=== PATIENT | male | born 1990 | race Caucasian/White ===

== ENCOUNTER 2017-06-07 14:34 | Emergency (ER) | payer SELFPAY ==
[2017-06-07 14:40] VITALS: TEMP 98.2
--- NOTE | 2017-06-07 14:43 | CPEKG ---
Heart Rate: 101 RR Interval: 594 P-R Interval: 144 QRSD Interval: 94 QT Interval: 348 QTC Interval: 452 P [place]: 53 QRS [place]: 39 T Wave [place]: 36 EKG Severity - OTHERWISE NORMAL ECG - EKG Impression: SINUS TACHYCARDIA Electronically Signed By: Philip Anglin 07-Jun-2017 15:28:52
[2017-06-07] MEDS ORDERED: LORazepam 2 MG/ML INJ IVP ONE (15:23)
[2017-06-07] MEDS ORDERED: NS 1,000 ML IV ONE (15:23)
[2017-06-07 15:28] LABS: % IMMATURE GRANULYOCYTES 0.2 % (0.0-1.1); ABSOLUTE IMMATURE GRANULOCYTES 0.01 10^3/uL (0.00-0.10); ADD DIFF? NO; ADD MORPH? NO; ADD SCAN? NO; ATYPICAL LYMPHOCYTE FLAG 10 (0-99); FRAGMENT RBC FLAG 0 (0-99); HEMATOCRIT 48.2 % (40.0-51.0); LEFT SHIFT FLG 0 (0-99); LIPEMIA HEMOLYSIS FLAG 90 (0-99); MEAN CELL HEMOGLOBIN 33.8 pg (27.9-34.1); MEAN CELL HEMOGLOBIN CONCENTR. 35.3 g/dL (32.4-36.7); MEAN CELL VOLUME 95.8 fL (81.5-99.8); MEAN PLATELET VOLUME 10.7 fL (8.7-11.7); PLATELET CLUMPS FLAG 0 (0-99); PLATELET COUNT 238 10^3/uL (150-400); RED BLOOD CELL COUNT 5.03 10^6/uL (4.40-6.38); RED CELL DISTRIBUTION WIDTH 11.4 % (11.5-15.2)
--- NOTE | 2017-06-07 15:28 | EDPHY ---
H & P Stated Complaint: found in work bathrm unresponsive, hx seizures, no trauma, urinary incont Time Seen by Provider: 06/07/17 15:04 HPI/ROS: CHIEF COMPLAINT: Seizure HISTORY OF PRESENT ILLNESS: The patient is a 26-year-old man who had a seizure in the bathroom at work at the [employer] store. He states that he has a history of seizures but has never been diagnosed with epilepsy. He states that this is the 3rd seizure in his life. EMS reported history of alcohol abuse but the patient denies this. He does state that his last drink was about 3 days ago and he was having mild tremors. He does not think that his seizures are related to alcohol use. According to EMS he was incontinent and postictal initially but is now clearing. He states that he still feels slightly confused. He denies any pain or headache. REVIEW OF SYSTEMS: Constitutional: denies: chills, fever, recent illness, recent injury EENTM: denies: blurred vision, double vision, nose congestion Respiratory: denies: cough, shortness of breath Cardiac: denies: chest pain, irregular heart rate, lightheadedness, palpitations Gastrointestinal/Abdominal: denies: abdominal pain, diarrhea, nausea, vomiting, blood streaked stools Genitourinary: denies: dysuria, frequency, hematuria, pain Musculoskeletal: denies: joint pain, muscle pain Skin: denies: lesions, rash, jaundice, bruising Neurological: See HPI, denies: headache, numbness, paresthesia, tingling, dizziness, weakness Hematologic/Lymphatic: denies: blood clots, easy bleeding, easy bruising Immunologic/allergic: denies: HIV/AIDS, transplant EXAM: GENERAL: Confused HEAD: Atraumatic, normocephalic. EYES: Pupils equal round and reactive to light, extraocular movements intact, sclera anicteric, conjunctiva are normal. ENT: TMs normal, nares patent, oropharynx clear without exudates. Moist mucous membranes. NECK: Normal range of motion, supple without lymphadenopathy or JVD. LUNGS: Breath sounds clear to auscultation bilaterally and equal. No wheezes rales or rhonchi. HEART: Regular rate and rhythm without murmurs, rubs or gallops. ABDOMEN: Soft, nontender, normoactive bowel sounds. No guarding, no rebound. No masses appreciated. BACK: No CVA tenderness, no spinal tenderness, step-offs or deformities EXTREMITIES: Normal range of motion, no pitting or edema. No clubbing or cyanosis. NEUROLOGICAL: No tremors, Cranial nerves II through XII grossly intact. Normal speech, normal gait. 5/5 strength, normal movement in all extremities, normal sensation PSYCH: Answers questions appropriately SKIN: Warm, dry, normal turgor, no visible rashes or lesions. Source: Patient Exam Limitations: No limitations - Personal History Current Tetanus/Diphtheria Vaccine: Unsure Current Tetanus Diphtheria and Acellular Pertussis (TDAP): Unsure - Medical/Surgical History Hx Asthma: No Hx Chronic Respiratory Disease: No Hx Diabetes: No Hx Cardiac Disease: No Hx Renal Disease: No Hx Cirrhosis: No Hx Alcoholism: Yes Hx HIV/AIDS: No Hx Splenectomy or Spleen Trauma: No Other PMH: seizures - Family History Significant Family History: No pertinent family hx - Social History Smoking Status: Never smoked Alcohol Use: Heavy Drug Use: None Constitutional: Initial Vital Signs Temperature (C) 36.8 C 06/07/17 14:37 Heart Rate 114 H 06/07/17 14:37 Respiratory Rate 18 06/07/17 14:37 Blood Pressure 141/97 H 06/07/17 14:37 O2 Sat (%) 97 06/07/17 14:37 O2 Delivery Mode Room Air Allergies/Adverse Reactions: No Known Allergies Allergy (Unverified 06/07/17 14:36) Home Medications: Medication Instructions Recorded Adderall 20 mg (*) 06/07/17 Medical Decision Making - Diagnostics EKG Interpretation: My trace few, sinus tachycardia, no acute ischemic changes ED Course/Re-evaluation: The patient's alcohol level is greater than 500. It is very unlikely that he had a seizure. Most likely he was simply passed out in the bathroom at work. He was already given Ativan however he is not desaturating and is arousable. 5:25 p.m. the patient is ambulating. He is alert and talkative. We will transfer him to the alcohol recovery Center with Librium. Differential Diagnosis: Partial list of the Differential diagnosis considered include but were not limited to; alcoholism, seizure, intoxication and although unlikely based on the history and physical exam, I also considered head injury, infection. - Data Points Laboratory Results: Laboratory Results 06/07/17 14:42 06/07/17 14:42 06/07/17 06/07/17 14:42 14:42 WBC 6.31 10^3/uL 10^3/uL (3.80-9.50) RBC 5.03 10^6/uL 10^6/uL (4.40-6.38) Hgb 17.0 g/dL g/dL (13.7-17.5) Hct 48.2 % % (40.0-51.0) MCV 95.8 fL fL (81.5-99.8) MCH 33.8 pg pg (27.9-34.1) MCHC 35.3 g/dL g/dL (32.4-36.7) RDW 11.4 % L % (11.5-15.2) Plt Count 238 10^3/uL 10^3/uL (150-400) MPV 10.7 fL fL (8.7-11.7) Neut % (Auto) 55.0 % % (39.3-74.2) Lymph % (Auto) 35.3 % % (15.0-45.0) Edgar % (Auto) 7.4 % % (4.5-13.0) Eos % (Auto) 1.1 % % (0.6-7.6) Baso % (Auto) 1.0 % % (0.3-1.7) Nucleat RBC Rel Count 0.0 % % (0.0-0.2) Absolute Neuts (auto) 3.47 10^3/uL 10^3/uL (1.70-6.50) Absolute Lymphs (auto) 2.23 10^3/uL 10^3/uL (1.00-3.00) Absolute Monos (auto) 0.47 10^3/uL 10^3/uL (0.30-0.80) Absolute Eos (auto) 0.07 10^3/uL 10^3/uL (0.03-0.40) Absolute Basos (auto) 0.06 10^3/uL 10^3/uL (0.02-0.10) Absolute Nucleated RBC 0.00 10^3/uL 10^3/uL (0-0.01) Immature Gran % 0.2 % % (0.0-1.1) Immature Gran # 0.01 10^3/uL 10^3/uL (0.00-0.10) Sodium 149 mEq/L H mEq/L (134-144) Potassium 4.6 mEq/L mEq/L (3.5-5.2) Chloride 111 mEq/L H mEq/L (97-110) Carbon Dioxide 18 mEq/l L mEq/l (22-31) Anion Gap 20 mEq/L H mEq/L (8-16) BUN 16 mg/dL mg/dL (7-23) Creatinine 0.9 mg/dL mg/dL (0.7-1.3) Estimated GFR > 60 Glucose 96 mg/dL mg/dL (70-100) Calcium 10.4 mg/dL mg/dL (8.5-10.4) Ethyl Alcohol 536 mg/dL H* mg/dL (0-10) Medications Given: Discontinued Medications Chlordiazepoxide (Librium 25 Mg Prepack#6) 1 btl TAKEHOME EDNOW ONE Stop: 06/07/17 17:28 Last Admin: 06/07/17 17:49 Dose: 1 btl Sodium Chloride (Ns) 1,000 mls @ 0 mls/hr IV ONCE ONE; Wide Open PRN Reason: Protocol Stop: 06/07/17 15:24 Last Admin: 06/07/17 15:35 Dose: 1,000 mls Lorazepam (Ativan Injection) 1 mg IVP EDNOW ONE Stop: 06/07/17 15:24 Last Admin: 06/07/17 15:35 Dose: 1 mg Departure - Departure Disposition: Home, Routine, Self-Care Clinical Impression: Alcohol intoxication Qualifiers: Complication of substance-induced condition: with unspecified complication Qualified Code(s): F10.929 - Alcohol use, unspecified with intoxication, unspecified Condition: Fair Instructions: Chlordiazepoxide (By mouth), Alcohol Intoxication (ED) Additional Instructions: Go directly to the [facility] recovery [facility]. We will send you with Librium for when you began to withdrawal. Referrals: Alyssa Springer MD [Medical Doctor] - As per Instructions
[2017-06-07 15:35] LABS: ANION GAP 20 mEq/L (8-16); CALCIUM 10.4 mg/dL (8.5-10.4); CARBON DIOXIDE 18 mEq/l (22-31); CHLORIDE 111 mEq/L (97-110); CREATININE 0.9 mg/dL (0.7-1.3); GLOMERULAR FILTRATION RATE > 60; GLUCOSE 96 mg/dL (70-100); POTASSIUM 4.6 mEq/L (3.5-5.2); SODIUM 149 mEq/L (134-144)
[2017-06-07 15:46] LABS: ETHANOL SERUM 536 mg/dL (0-10)
[2017-06-07] MEDS ORDERED: CHLORDIAZEPOXIDE 25MG PREPK#6 BTL TAKEHOME ONE (17:27)
[2017-06-07 17:52] VITALS: BP 120/84; PULSE 100; RESP 16; O2SAT 94
== END 2017-06-07 17:50 | disposition home or self-care (01) ==
DX: F10.929 Alcohol use, unspecified with intoxication, unspecified (principal); E86.9 Volume depletion, unspecified
CPT/HCPCS: 96374; G0480; J2060